=== PATIENT | male | born 1980 | race Caucasian/White ===

== ENCOUNTER 2021-06-12 17:40 | Emergency (ER) | payer BC ==
[~2021-06-12] VITALS: Ht 180.3 cm; Wt 97.5 kg
[2021-06-12 17:45] VITALS: BP_SYST 122
--- NOTE | 2021-06-12 17:45 | NUR ---
Patient to ER bed 5 to gown for evaluation. Side rails up. Report given to HERMANN SANTILLAN.
--- NOTE | 2021-06-12 17:58 | NUR ---
MD CLARK AT BEDSIDE ASSESSING PT
[2021-06-12] MEDS ORDERED: IBUP-1969 PO (19:23)
[2021-06-12 19:35] VITALS: BP_SYST 120
--- NOTE | 2021-06-12 19:35 | NUR ---
Assigned to discharge. Patient given written and verbal discharge instructions and verbalizes understanding. ER MD discussed with patient the results and treatment provided. Patient in stable condition. ID arm band removed. Rx of ibuprofen given. Patient educated on pain management and to follow up with PMD. Opportunity for questions provided and answered. Medication side effect fact sheet provided.
== END 2021-06-12 19:40 | disposition home or self-care (01) ==
LOC: SED 17:40
DX: S89.91XA Unspecified injury of right lower leg, initial encounter (principal); W03.XXXA Other fall on same level due to collision with another person, initial encounter; Y93.61 Activity, american tackle football; Y92.89 Other specified places as the place of occurrence of the external cause; Y99.8 Other external cause status
CPT/HCPCS: 73564; 99283